=== PATIENT | male | born 1950 | race Caucasian/White ===

== ENCOUNTER → 2017-04-20 16:19 | Emergency (ER) | payer OTHER, MEDICARE ==
[~2017-04-20 16:19] MED LIST: ALBUTEROL INH; ASAB PO; COZAAR100 MG PO; ETODOLAC500 MG OR; FISH-EPA1000 MG PO; FLOMAX4 PO; GLUCCHONDR PO; GLUCPH PO; HCTZ25B PO; LIPITOR20 PO; NEUR600 PO; NOR25 PO; NORCO1 TAB PO; OS500+D PO; PLAQ200B PO; PRILO PO; PROSCAR5 PO; SPIRIVA INH; SURBEX-T1 TAB PO; THERAPEUTIC PO; VITAMIN D31000 UNIT PO; VITD PO; [UNRECOGNIZED DRUG - OTHER] PO
== END | disposition home or self-care (01) ==
LOC: ER 16:19
DX: S66.911A Strain of unspecified muscle, fascia and tendon at wrist and hand level, right hand, initial encounter (principal); F17.200 Nicotine dependence, unspecified, uncomplicated; Z79.82 Long term (current) use of aspirin; Z79.899 Other long term (current) drug therapy; V49.9XXA Car occupant (driver) (passenger) injured in unspecified traffic accident, initial encounter
CPT/HCPCS: 73130-RT; 99284